=== PATIENT | male | born 1985 | race Caucasian/White ===

== ENCOUNTER 2017-11-28 19:44 | Emergency (ER) | payer MEDICAID ==
[2017-11-28] MEDS ORDERED: FENTANYL CITRATE INJ/PF 100 MCG/2 ML AMPUL IM ONE (20:22)
--- NOTE | 2017-11-28 20:23 | ER Document Report ---
ED Medical Screen (RME) - General Chief Complaint: Chest Pain Stated Complaint: CHEST PAIN Time Seen by Provider: 11/28/17 20:18 Notes: RAPID MEDICAL EVALUATION DISCLOSURE I have seen this patient as part of a Rapid Medical Evaluation and, if applicable, placed any initially appropriate orders. The patient will be seen and fully evaluated, including a full history and physical exam, by a provider ( in Main ED or Fast Track) when a room becomes available. 32-year-old male here with complaints of left-sided chest pain that started yesterday and has progressively worsened. The pain is worse with breathing deep so he has been breathing shallow to prevent the pain from worsening. He has tried some aspirins which has helped minimally. Pain is not worse with exertion. He does not have diaphoresis lightheadedness nausea vomiting. He does smoke cigarettes 1 or 2 cigarettes every few days. He denies any prior history of pneumothorax PE. He denies any family history of pneumothorax PE. EXAM Tachypneic, but clear lungs Patient taking very shallow breaths Regular rate and rhythm Minimal left parasternal border TTP (patient states this is not the same pain he is experiencing) MDM Patient upgraded to yellow for concern of possible pneumothorax, given his exam findings TRAVEL OUTSIDE OF THE [place] IN LAST 30 DAYS: No - Related Data Allergies/Adverse Reactions: No Known Allergies Allergy (Verified 11/28/17 19:48) Past Medical History Renal/ Medical History: Denies: Hx Peritoneal Dialysis Physical Exam - Vital signs Vitals: Temp Pulse Resp BP Pulse Ox 98.6 F 67 20 142/91 H 96 11/28/17 20:00 11/28/17 20:00 11/28/17 20:00 11/28/17 20:00 11/28/17 20:00 Course - Vital Signs Vital signs: Temp Pulse Resp BP Pulse Ox 98.6 F 67 20 142/91 H 96 11/28/17 20:00 11/28/17 20:00 11/28/17 20:00 11/28/17 20:00 11/28/17 20:00 Doctor's Discharge - Discharge Referrals: ALEXANDRIA ALEJANDRO DO [Primary Care Provider] - Follow up as needed
[2017-11-28 20:57] LABS: ABSOLUTE BASOPHILS # (AUTO) 0.1 10^3/uL (0.0-0.2); ABSOLUTE EOSINOPHILS # (AUTO) 0.1 10^3/uL (0.0-0.6); ABSOLUTE LYMPHOCYTES (AUTO) 2.2 10^3/uL (0.5-4.7); ABSOLUTE MONOCYTES (AUTO) 0.4 10^3/uL (0.1-1.4); ABSOLUTE NEUT (AUTO) 3.1 10^3/uL (1.7-8.2); EOSINOPHILS % (AUTO) 1.8 % (0-6); HEMATOCRIT 45.9 % (37.9-51.0); HEMOGLOBIN 16.1 g/dL (13.5-17.0); LYMPHOCYTES % (AUTO) 36.6 % (13-45); MEAN CORPUSCULAR HEMOGLOBIN 29.3 pg (27.0-33.4); MEAN CORPUSCULAR VOLUME 84 fl (80-97); MONOCYTES % (AUTO) 7.6 % (3-13); PLATELET COUNT 278 10^3/uL (150-450); RED BLOOD COUNT 5.48 10^6/uL (4.35-5.55); RED CELL DISTRIBUTION WIDTH 12.7 % (11.5-14.0); TOTAL CELLS COUNTED % (AUTO) 100 %; WHITE BLOOD COUNT 5.9 10^3/uL (4.0-10.5)
[2017-11-28 21:15] LABS: ALANINE AMINOTRANSFERASE 42 U/L (21-72); ALBUMIN 4.5 g/dL (3.5-5.0); ALKALINE PHOSPHATASE 73 U/L (38-126); ANION GAP 14 (5-19); ASPARTATE AMINO TRANSFERASE 31 U/L (17-59); BILIRUBIN,DIRECT 0.3 mg/dL (0.0-0.4); BILIRUBIN,TOTAL 0.7 mg/dL (0.2-1.3); BLOOD UREA NITROGEN 16 mg/dL (7-20); CALCIUM 9.6 mg/dL (8.4-10.2); CARBON DIOXIDE 29 mmol/L (22-30); CHLORIDE 102 mmol/L (98-107); GLUCOSE 113 mg/dL (75-110); POTASSIUM 4.1 mmol/L (3.6-5.0); SODIUM 145.1 mmol/L (137-145); TOTAL PROTEIN 7.8 g/dL (6.3-8.2)
--- NOTE | 2017-11-28 21:28 | RADIOLOGY REPORT (SQ) ---
EXAM DESCRIPTION: CHEST 2 VIEWS COMPLETED DATE/TIME: 11/28/2017 9:18 pm REASON FOR STUDY: SOB CP COMPARISON: 03/19/2016 EXAM PARAMETERS: NUMBER OF VIEWS: two views TECHNIQUE: Digital Frontal and Lateral radiographic views of the chest acquired. RADIATION DOSE: NA LIMITATIONS: none FINDINGS: LUNGS AND PLEURA: No opacities, masses or pneumothorax. No pleural effusion. MEDIASTINUM AND HILAR STRUCTURES: No masses or contour abnormalities. HEART AND VASCULAR STRUCTURES: Heart normal size. No evidence for failure. BONES: No acute findings. HARDWARE: None in the chest. OTHER: No other significant finding. IMPRESSION: NO ACUTE RADIOGRAPHIC FINDING IN THE CHEST. TECHNICAL DOCUMENTATION: JOB ID: [id number] [employer]rion- All Rights Reserved Reading location - IP/workstation name: [email or web address]
[2017-11-28] MEDS ORDERED: DIAZEPAM 5 MG TABLET PO ONE (21:32)
[2017-11-28] MEDS ORDERED: KETOROLAC TROMETHAMINE 60 MG/2 ML SDV IM ONE (21:32)
--- NOTE | 2017-11-28 21:41 | ER Document Report ---
ED General - General Chief Complaint: Chest Pain Stated Complaint: CHEST PAIN Time Seen by Provider: 11/28/17 20:18 Mode of Arrival: Ambulatory Information source: Patient Notes: Chief complaint: Left chest wall pain History of complain:( obtained from----patient) 32 years old male presents today with left-sided chest pain since yesterday. He was on the for an argument with somebody was emotionally upset. Following which the developed the pain. He states pain started somewhere in the mid scapular and radiated down to the front at the costosternal region. Each time he moves his arm or to twist his chest pain is increased in intensity. At times feeling numbness over the left arm. Denies any nausea vomiting difficulty in breathing. Denies any fever chills or other constitutional symptoms. smoker, father at 60 had stents placed. Onset: As above Duration: 2 days Severity: Moderate to severe Quality: Sharp Context: As described above Exacerbating factor and relieving factors: As described above REVIEW OF SYSTEMS: CONSTITUTIONAL : Denies fever, chills, or sweats. Denies recent illness. EENT: Denies eye, ear, throat, or mouth pain or symptoms. Denies nasal or sinus congestion or discharge. Denies throat, tongue, or mouth swelling or difficulty swallowing. CARDIOVASCULAR: Denies chest pain. Denies palpitations or racing or irregular heart beat. Denies ankle edema. RESPIRATORY: Denies cough, cold, or chest congestion. Denies shortness of breath, difficulty breathing, or wheezing. GASTROINTESTINAL: Denies distention. Denies nausea, vomiting, or diarrhea. Denies blood in vomitus, stools, or per rectum. Denies black, tarry stools. Denies constipation. GENITOURINARY: Denies difficulty urinating, painful urination, burning, frequency, blood in urine, or discharge. FEMALE GENITOURINARY: Denies vaginal bleeding, heavy or abnormal periods, irregular periods. Denies vaginal discharge or odor. MUSCULOSKELETAL: Denies back or neck pain or stiffness. Denies joint pain or swelling. SKIN: Denies rash, lesions or sores. HEMATOLOGIC : Denies easy bruising or bleeding. LYMPHATIC: Denies swollen, enlarged glands. NEUROLOGICAL: Denies confusion or altered mental status. Denies passing out or loss of consciousness. Denies dizziness or lightheadedness. Denies headache. Denies weakness or paralysis or loss of use of either side. Denies problems with gait or speech. Denies sensory loss, numbness, or tingling. Denies seizures. PSYCHIATRIC: Denies anxiety or stress. Denies depression, suicidal ideation, or homicidal ideation. ALL OTHER SYSTEMS REVIEWED AND NEGATIVE. PHYSICAL EXAMINATION: GENERAL: Well-appearing, well-nourished and in no acute distress. HEAD: Atraumatic, normocephalic. EYES: Pupils equal round and reactive to light, extraocular movements intact, conjunctiva are normal. ENT: Nares patent, oropharynx clear without exudates. Moist mucous membranes. NECK: Normal range of motion, supple without lymphadenopathy LUNGS: Breath sounds clear to auscultation bilaterally and equal. No wheezes rales or rhonchi. HEART: Regular rate and rhythm without murmurs Chest wall-sharp chest wall tenderness noted, over the trapezoid muscle distribution as well as sternocostal region. On the left side. ABDOMEN: Soft, nontender, nondistended abdomen. No guarding, no rebound. No masses appreciated. Examination of genitals-deferred Musculoskeletal: Normal range of motion, no pitting or edema. No cyanosis. NEUROLOGICAL: Cranial nerves grossly intact. Normal speech, normal gait. Normal sensory, motor exams PSYCH: Normal mood, normal affect. SKIN: Warm, Dry, normal turgor, no rashes or lesions noted. Dictation was performed using [employer] voice recognition software TRAVEL OUTSIDE OF THE [place] IN LAST 30 DAYS: No - HPI Onset: Just prior to arrival - Related Data Allergies/Adverse Reactions: No Known Allergies Allergy (Verified 11/28/17 19:48) Past Medical History - Social History Smoking Status: Current Some Day Smoker Cigarette use (# per day): No Chew tobacco use (# tins/day): No Smoking Education Provided: No Frequency of alcohol use: Rare Drug Abuse: None Family History: Reviewed & Not Pertinent Patient has suicidal ideation: No Patient has homicidal ideation: No Renal/ Medical History: Denies: Hx Peritoneal Dialysis Review of Systems - Review of Systems Notes: Dictated Physical Exam - Vital signs Vitals: Temp Pulse Resp BP Pulse Ox 98.6 F 67 20 142/91 H 96 11/28/17 20:00 11/28/17 20:00 11/28/17 20:00 11/28/17 20:00 11/28/17 20:00 - Notes Notes: Dictated Course - Re-evaluation Re-evalutation: 11/29/17 02:18 2 set of cardiac enzymes came back negative Patient remained comfortable - Vital Signs Vital signs: Temp Pulse Resp BP Pulse Ox 98.6 F 67 21 H 131/81 H 96 11/28/17 20:00 11/28/17 20:00 11/28/17 22:01 11/28/17 22:01 11/28/17 22:01 - Laboratory Result Diagrams: 11/28/17 20:33 11/28/17 20:33 Laboratory results interpreted by me: 11/28/17 20:33 Sodium 145.1 H Glucose 113 H - Diagnostic Test Radiology reviewed: Reports reviewed - Reported by radiologist as unremarkable - EKG Interpretation by Me EKG shows normal: Sinus rhythm Rate: Normal - Sinus rhythm at the rate of 55 bpm normal axis no acute ST elevation ST depression T-wave inversion noted. Discharge - Discharge Clinical Impression: Chest wall pain Chest pain Qualifiers: Chest pain type: other chest pain Qualified Code(s): R07.89 - Other chest pain Condition: Fair Disposition: HOME, SELF-CARE Instructions: Chest Wall Pain ([facility]) Prescriptions: Diazepam [Valium 2 mg Tablet] 2 mg PO Q6HP PRN #15 tablet PRN Reason: Hydrocodone/Acetaminophen [[place] 5-325 mg Tablet] 1 tab PO BID PRN #10 tablet PRN Reason: Naproxen Sodium [Naprelan] 500 mg PO BID #60 tablet. Referrals: ALEXANDRIA ALEJANDRO DO [Primary Care Provider] - Follow up as needed
--- NOTE | 2017-11-29 00:19 | EKG REPORT ---
SEVERITY:- NORMAL ECG - SINUS RHYTHM : Confirmed by: Prerna Gandhi MD 29-Nov-2017 00:18:15
[2017-11-29 03:22] VITALS: BP 137/98
== END 2017-11-29 03:30 | disposition home or self-care (01) ==
LOC: ER 19:44
DX: R07.89 Other chest pain (principal); R20.0 Anesthesia of skin; F17.200 Nicotine dependence, unspecified, uncomplicated
CPT/HCPCS: 93005; 99285; 96372; 36415; 85025; 80053; 84484; 85379; 71046; 93010; J3490; J1885; J3010

== ENCOUNTER 2018-02-06 20:32 | Emergency (ER) | payer OTHER, MEDICAID ==
--- NOTE | 2018-02-06 23:27 | ER Document Report ---
HPI - HPI Pain Level: 4 Notes: Patient is a 32-year-old male no significant past medical history who presents to the ED complaining of a possible spider bite to his right posterior forearm that occurred about 12 hours ago. Patient was at work during the incident and was carrying boxes at that time. Patient states that he felt something crawling on his arm when he felt a pinching that he smacked his arm and believes that it was a spider, but is not sure. Patient states that he did initially feel nauseous, but that has since resolved. Patient states that he has noticed some redness starting to spread around where he was bit. He has no history of MRSA. Denies any drug allergies or IV drug use. Denies any headache , fever, URI, sore throat, chest pain, palpitations, syncope, cough, shortness of breath, wheeze, dyspnea, abdominal pain, current nausea/vomiting/diarrhea, urinary retention, dysuria, hematuria, loss of control of bowel or bladder, numbness/tingling, muscle paralysis/weakness. - ROS Systems Reviewed and Negative: Yes All other systems reviewed and negative Past Medical History - Social History Smoking Status: Never Smoker Frequency of alcohol use: None Drug Abuse: None Family History: Reviewed & Not Pertinent Patient has suicidal ideation: No Patient has homicidal ideation: No Renal/ Medical History: Denies: Hx Peritoneal Dialysis Vertical Provider Document - CONSTITUTIONAL Agree With Documented VS: Yes Notes: PHYSICAL EXAMINATION: GENERAL: Well-appearing, well-nourished and in no acute distress. LUNGS: Breath sounds clear to auscultation bilaterally and equal. No wheezes rales or rhonchi. HEART: Regular rate and rhythm without murmurs, rubs, gallops. ABDOMEN: Soft, nontender, nondistended abdomen. No guarding, no rebound. No masses appreciated. Normal bowel sounds present. No CVA tenderness bilaterally. Musculoskeletal: Rt UE: FROM to passive/active. Strength 5+/5. N/V intact distal. Extremities: No cyanosis, clubbing, or edema b/l. Peripheral pulses 2+. Capillary refill less than 3 seconds. NEUROLOGICAL: Normal speech, normal gait. Normal sensory, motor exams PSYCH: Normal mood, normal affect. SKIN: Rt posterior forearm: there is a small 0.2cm scab noted centrally and a mild erythema surrounding. + warmth. + tenderness primarily in the area of the scab with very minimal central induration. No streaks or purulence noted. No fluctuance. Tissue is otherwise soft deep to the erythema. - INFECTION CONTROL TRAVEL OUTSIDE OF THE [place] IN LAST 30 DAYS: No Course - Re-evaluation Re-evalutation: 02/06/18 23:25 Patient is an afebrile, well-hydrated, 32-year-old male who presents to the ED with a mild cellulitis the right posterior forearm status post insect bite. Vitals are acceptable without any significant tachycardia, tachypnea, or hypoxia. PE is otherwise unremarkable for any neurovascular compromise, obvious tendon/ligament rupture, obvious fracture/dislocation, septic joint. I did take an 18-gauge needle to the point of maximal tenderness where the minimal induration and scab is in no purulence was expressed. Wound culture obtained and will be sent. Patient is nontoxic-appearing and is tolerating p.o. without any difficulties. No other labs or imaging warranted at this time based on H&P. At this time there is no other indication for a large incision and drainage to be performed. Keflex and Bactrim given p.o. today. I will send him home with a prescription for both. Recheck with your PCM in 2-3 days. Return to the ED with any worsening/concerning symptoms otherwise as reviewed discharge. Patient is in agreement. - Vital Signs Vital signs: Temp Pulse Resp BP Pulse Ox 97.5 F 63 14 136/87 H 97 02/06/18 20:41 02/06/18 20:41 02/06/18 20:41 02/06/18 20:41 02/06/18 20:41 Procedures - Incision and Drainage Right Arm Time completed: 23:15 - pt tolerated proc well w/o complications Type: Simple Incision Method: Incision made with needle Amount/type of drainage: bloody, no purulence noted Discharge - Discharge Clinical Impression: Cellulitis Qualifiers: Site of cellulitis: extremity Site of cellulitis of extremity: upper extremity Laterality: right Qualified Code(s): L03.113 - Cellulitis of right upper limb Condition: Stable Disposition: HOME, SELF-CARE Instructions: Cephalexin ([facility]), Trimethoprim-Sulfa ([facility]) Additional Instructions: Keep the skin clean Wash with soap and water Tylenol/ibuprofen if needed Triple antibiotic ointment daily Epson salt soaks Take medication as directed Monitor for any worsening symptoms Recheck with your PCM in 2-3 days Return to the ED with any worsening symptoms and/or development of fever, headache, chest pain, palpitations, syncope, shortness of breath, trouble breathing, abdominal pain, n/v/d, abscess, purulent discharge, red streaks, worsening swelling, or other worsening symptoms that are concerning to you. Prescriptions: Cephalexin Monohydrate [Keflex 500 mg Capsule] 500 mg PO TID #21 capsule Sulfamethoxazole/Trimethoprim [Bactrim Ds Tablet] 1 each PO BID #20 tablet Forms: Elevated Blood Pressure Referrals: ALEXANDRIA ALEJANDRO DO [Primary Care Provider] - 02/10/18
[2018-02-06] MEDS ORDERED: SULFAMETHOXAZOLE/TRIMETHOPRIM 800-160 MG TABLET PO ONE (23:29)
[2018-02-06] MEDS ORDERED: CEPHALEXIN 500 MG CAPSULE PO ONE (23:29)
[2018-02-06 23:52] VITALS: BP 133/76
== END 2018-02-06 23:49 | disposition home or self-care (01) ==
LOC: ER 20:32
DX: S50.861A Insect bite (nonvenomous) of right forearm, initial encounter (principal); L03.113 Cellulitis of right upper limb; W57.XXXA Bitten or stung by nonvenomous insect and other nonvenomous arthropods, initial encounter; Y93.89 Activity, other specified; Y99.0 Civilian activity done for income or pay
CPT/HCPCS: 87070; 87205; 99283